=== PATIENT | male | born 1970 | race Caucasian/White ===

== ENCOUNTER 2020-04-06 17:04 | Emergency (ER) | payer SELFPAY ==
[2020-04-06 17:07] VITALS: BP 179/93; PULSE 69; RESP 16; TEMP 36.6; O2SAT 98; BMI 23.1
[2020-04-06] MEDS: PROPARACAINE 0.5% OPHTH SOL 1 DROPS EYE-BOTH (17:36)
--- NOTE | 2020-04-06 18:51 | ED.EYEPROB ---
HPI - Eye Problem General Chief complaint: Eye Problems Stated complaint: PAINFUL RIGHT EYE Time Seen by Provider: 04/06/20 18:51 Source: patient Mode of arrival: Ambulatory Limitations: no limitations History of Present Illness HPI Narrative: The patient was working on his vehicle 3 days ago. He is unaware of anything fell into his right eye, but he developed right eye discomfort after working on the vehicle. He developed redness to the right eye. He has no periorbital erythema. He has no edema around the eye. He has watery discharge only. His vision is unaffected. His left eye is unaffected. He has no URI/viral syndrome symptoms. Related Data Allergies Allergy/AdvReac Type Severity Reaction Status Date / Time No Known Drug Allergies Allergy Verified 04/06/20 17:07 Review of Systems Review of Systems ROS Unobtainable: All systems reviewed & are unremarkable except as noted in HPI and below Eyes Eyes: Denies change in vision, Reports eye discharge, Reports irritation, Denies loss of vision and Reports eye pain ENT Comments: No URI symptoms. Respiratory Respiratory: Denies cough Neurologic Neurologic: Denies loss of vision Patient History Social History Smoking Status: Never smoker Smoking Status: Never smoker alcohol intake frequency: a few times a week Substance Use Type: does not use Exam Initial Vital Signs Initial Vital Signs: Vital Signs Temperature 97.9 F 04/06/20 17:07 Pulse Rate 69 04/06/20 17:07 Respiratory Rate 16 04/06/20 17:07 Blood Pressure 179/93 H 04/06/20 17:07 Pulse Oximetry 98 04/06/20 17:07 Const General: cooperative and well developed Nutritional Appearance: well nourished [facility] Head: normocephalic and atraumatic Face and sinus: sinuses nontender, face symmetric and No dry mucous membranes Mouth: oral mucosae normal and moist mucous membranes Eyes General: appearance normal, both eyes and all related structures Eyelids: eyelids normal Conjunctivae: conjunctival abnormality (eye injected. Watery discharge.) right Sclera: sclerae normal Cornea: fluorescein used (Small corneal abrasion, no foreign body) Pupils: PERRL EOM: EOM intact bilaterally Other: Anterior chambers clear. Neck Neck: No lymphadenopathy Course Course Course Narrative: A small corneal abrasion was identified in the right eye. He has been started on gentamicin. He is advised to follow up with an eye doctor if not improved within 2 days. Contact information for Ophthalmology was provided. Orders Ordered: Discontinued Medications Fluorescein Sodium (Ful-Surekha) 1 mg EYE-RIGHT NOW ONE Stop: 04/06/20 18:55 Last Admin: 04/06/20 18:58 Dose: 1 mg Documented by: RAVEN Gentamicin Sulfate (Garamycin 0.3% Ophth Prepack) 1 bottle MISC [id number] IVANIA Stop: 04/11/20 08:00 Last Admin: 04/06/20 19:38 Dose: 1 bottle Documented by: LUIZA Proparacaine HCl (Parcaine 0.5% Ophth Tia) 1 drops EYE-BOTH NOW ONE Stop: 04/06/20 17:13 Last Admin: 04/06/20 17:36 Dose: 1 drops Documented by: BTONER Vital Signs Vital signs: Vital Signs - 8 hr 04/06/20 17:07 Temperature 97.9 F Pulse Rate 69 Respiratory Rate 16 Blood Pressure 179/93 H Pulse Oximetry 98 Discharge Plan Departure Patient Disposition: Home Clinical Impression: Abrasion of cornea, right Qualifiers: Encounter type: initial encounter Qualified Code(s): S05.01XA - Injury of conjunctiva and corneal abrasion without foreign body, right eye, initial encounter Discharge Date/Time: 04/06/20 19:36 Instructions: Corneal Abrasion Activity Restrictions/Additional Instructions: Gentamicin drops, 1 drop into the right eye every 4 hours while awake for 5 days. Tylenol 2 tablets every 4 hours as needed for pain. Wear sunglasses at the outside in bright light. Apply cool compresses over the right eye frequently for comfort. Have not improved within 2 days follow-up with a local eye doctor, contact information for an support services specialist is in this instruction. Referrals: Jose Valero MD [Physician] -
[2020-04-06] MEDS: FLUORESCEIN 1 MG STRIP EYE-RIGHT (18:58)
[2020-04-06] MEDS: GENTAMICIN 0.3% OPHTH PREPACK 1 BOTTLE MISC (19:38)
== END 2020-04-06 19:36 | disposition home or self-care (01) ==
PROVIDERS: Emergency Provider Emergency Medicine
DX: S05.01XA Injury of conjunctiva and corneal abrasion without foreign body, right eye, initial encounter (principal)
CPT/HCPCS: 99282

== ENCOUNTER → 2020-12-14 14:23 | Outpatient (CLI) | payer OTHER, SELFPAY ==
[2020-12-14 15:17] LABS: Alanine Aminotransferase 24 IU/L (<50); Albumin 4.4 g/dL (3.5-5.0); Albumin Globulin Ratio 1.5 (1.0-2.8); Alkaline Phosphatase 67 U/L (38-126); Aspartate Aminotransferase 29 IU/L (17-59); BUN Creatinine Ratio 20.4 (6-22); Bilirubin Total 0.6 mg/dL (0.2-1.3); Blood Urea Nitrogen 20 mg/dL (9-20); Calcium 9.2 mg/dL (8.4-10.2); Carbon Dioxide 32 mmol/L (22-32); Chloride 101 mmol/L (98-107); Cholesterol 181 mg/dL (140-199); Estimated Glomerular Filt Rate > 60.0 mL/min (>60); Glucose 96 mg/dL (70-100); HDL Cholesterol 72 mg/dL (40-60); HEMOLYSIS < 15 (0-50); LDL Cholesterol Calculated 98 mg/dL (<100); Potassium 3.9 mmol/L (3.4-5.1); Sodium 137 mmol/L (137-145); Total Protein 7.4 g/dL (6.3-8.2); Triglycerides 53 mg/dL (35-150)
[2020-12-14 16:13] LABS: TSH w/ Reflex to FT4 1.05 uIU/mL (0.47-4.68)
== END ==
PROVIDERS: PCP Internal Medicine; Referring Provider Internal Medicine; Visit Provider Internal Medicine
DX: I10 Essential (primary) hypertension (principal)
CPT/HCPCS: 36415; 80053; 80061; 84443